=== PATIENT | female | born 2000 | race Caucasian/White ===

== ENCOUNTER 2020-07-28 23:24 | Emergency (ER) | payer OTHER ==
[~2020-07-28 23:24] MED LIST: BACTRIM DS TAB1 EACH PO; PYRIDIUM100 MG PO
[2020-07-29] MEDS ORDERED: VENTOLIN HFA IN18 GM INH (04:18)
== END 2020-07-29 04:44 | disposition home or self-care (01) ==
LOC: FER 23:24
DX: J45.901 Unspecified asthma with (acute) exacerbation (principal); Z88.1 Allergy status to other antibiotic agents; Z88.8 Allergy status to other drugs, medicaments and biological substances; Z20.822 Contact with and (suspected) exposure to COVID-19
CPT/HCPCS: 71045; U0002

== ENCOUNTER 2020-09-01 11:12 | Emergency (ER) | payer OTHER ==
[~2020-09-01 11:12] MED LIST changes: +VENTOLIN HFA IN18 GM INH
[2020-09-01 11:40] LABS: BILIRUBIN NEGATIVE (NEGATIVE); BLOOD NEGATIVE Ery/uL (NEGATIVE); CLARITY CLEAR (CLEAR); COLOR YELLOW (YELLOW); GLUCOSE (U) NORMAL (NORMAL); LEUKOCYTES NEGATIVE Leu/uL (NEGATIVE); NITRITE NEGATIVE (NEGATIVE); PROTEIN NEGATIVE (NEGATIVE); SPECIFIC GRAVITY 1.025 (1.001-1.030); UROBILINOGEN 0.2 mg/dL (0.2-1.0)
[2020-09-01 11:59] LABS: BASOPHIL 0.3 % (0-2); EOSINOPHIL 0.8 % (0-5); HCT 41.7 % (37.0-47.0); HGB 14.1 g/dl (12.5-16.0); LYMPHOCYTE 23.2 % (15-48); MCH 30.7 pg (25.0-31.0); MCHC 33.8 g/dL (32.0-36.0); MCV 90.8 fL (78.0-100.0); MPV 10.8 fL (6.0-9.5); NEUTROPHIL 69.1 % (41-80); NRBC 0; PLT 222 K/uL (150-400); RBC 4.59 M/uL (4.20-5.40); WBC 8.6 K/uL (4.0-10.5)
[2020-09-01 12:07] LABS: ALBUMIN 3.7 g/dL (3.4-5.0); BILIRUBIN - TOTAL 0.7 mg/dL (0.2-1.0); BUN/CREAT RATIO (CALC) 12.9 RATIO; CREATININE 0.62 mg/dL (0.51-0.95); GLOBULIN (CALCULATION) 3.7 g/dL; POTASSIUM 3.6 mmol/L (3.5-5.1); TOTAL PROTEIN 7.4 g/dL (6.4-8.2)
== END 2020-09-01 17:45 | disposition home or self-care (01) ==
LOC: FER 11:12
PROVIDERS: Emergency Medicine
DX: O99.891 Other specified diseases and conditions complicating pregnancy (principal); R10.9 Unspecified abdominal pain; R82.4 Acetonuria; O99.511 Diseases of the respiratory system complicating pregnancy, first trimester; J45.909 Unspecified asthma, uncomplicated; Z88.8 Allergy status to other drugs, medicaments and biological substances; Z88.1 Allergy status to other antibiotic agents; Z3A.01 Less than 8 weeks gestation of pregnancy
CPT/HCPCS: 36415; 76830; 80053; 81003; 84702; 85025; 86900; 86901

== ENCOUNTER 2021-01-19 07:48 | Emergency (ER) | payer OTHER ==
[~2021-01-19] VITALS: Ht 157.5 cm; Wt 61.2 kg
[2021-01-19 08:42] LABS: BASOPHIL 1.1 % (0-2); BILIRUBIN NEGATIVE (NEGATIVE); BLOOD NEGATIVE Ery/uL (NEGATIVE); CLARITY CLEAR (CLEAR); COLOR YELLOW (YELLOW); EOSINOPHIL 0.8 % (0-5); GLUCOSE (U) NORMAL (NORMAL); HGB 12.4 g/dl (12.5-16.0); LEUKOCYTES NEGATIVE Leu/uL (NEGATIVE); LYMPHOCYTE 4.9 % (15-48); MCH 31.1 pg (25.0-31.0); MCHC 32.6 g/dL (32.0-36.0); MCV 95.2 fL (78.0-100.0); MONOCYTE 7.6 % (0-12); MPV 10.2 fL (6.0-9.5); NEUTROPHIL 78.4 % (41-80); NITRITE NEGATIVE (NEGATIVE); NRBC 0; PLT 162 K/uL (150-400); PROTEIN NEGATIVE (NEGATIVE); RBC 3.99 M/uL (4.20-5.40); RDW 13.1 % (11.5-14.0); SPECIFIC GRAVITY 1.015 (1.001-1.030); UROBILINOGEN 0.2 mg/dL (0.2-1.0); WBC 8.4 K/uL (4.0-10.5)
[2021-01-19 09:32] LABS: ALBUMIN 2.6 g/dL (3.4-5.0); BILIRUBIN - TOTAL 0.2 mg/dL (0.2-1.0); BUN/CREAT RATIO (CALC) 13.6 RATIO; CREATININE 0.44 mg/dL (0.51-0.95); GLOBULIN (CALCULATION) 3.4 g/dL; POTASSIUM 3.6 mmol/L (3.5-5.1)
== END 2021-01-19 12:42 | disposition home or self-care (01) ==
LOC: FER 07:48
PROVIDERS: Emergency Medicine
DX: O98.512 Other viral diseases complicating pregnancy, second trimester (principal); U07.1 COVID-19; Z23 Encounter for immunization; Z88.8 Allergy status to other drugs, medicaments and biological substances; Z88.1 Allergy status to other antibiotic agents; Z3A.25 25 weeks gestation of pregnancy
CPT/HCPCS: 36415; 80053; 81003; 85025; 87088; J7030; M0243; Q0244; U0002

== ENCOUNTER 2021-02-20 23:33 | Emergency (ER) | payer OTHER ==
[2021-02-21 00:42] LABS: BASOPHIL 0.7 % (0-2); EOSINOPHIL 0.7 % (0-5); HCT 33.9 % (37.0-47.0); HGB 11.5 g/dl (12.5-16.0); LYMPHOCYTE 15.4 % (15-48); MCH 31.4 pg (25.0-31.0); MCHC 33.9 g/dL (32.0-36.0); MCV 92.6 fL (78.0-100.0); MONOCYTE 10.6 % (0-12); MPV 9.7 fL (6.0-9.5); NEUTROPHIL 65.1 % (41-80); NRBC 0; PLT 149 K/uL (150-400); RBC 3.66 M/uL (4.20-5.40); RDW 12.7 % (11.5-14.0); WBC 11.8 K/uL (4.0-10.5)
[2021-02-21 00:57] LABS: ALBUMIN 2.1 g/dL (3.4-5.0); BILIRUBIN - TOTAL 0.2 mg/dL (0.2-1.0); BUN/CREAT RATIO (CALC) 15.6 RATIO; CREATININE 0.45 mg/dL (0.51-0.95); GLOBULIN (CALCULATION) 3.6 g/dL; POTASSIUM 3.3 mmol/L (3.5-5.1); TOTAL PROTEIN 5.7 g/dL (6.4-8.2)
== END 2021-02-21 03:22 | disposition home or self-care (01) ==
LOC: FER 23:33
PROVIDERS: Internal Medicine
DX: O99.891 Other specified diseases and conditions complicating pregnancy (principal); N13.2 Hydronephrosis with renal and ureteral calculous obstruction; Z88.1 Allergy status to other antibiotic agents; Z88.8 Allergy status to other drugs, medicaments and biological substances; Z3A.29 29 weeks gestation of pregnancy
CPT/HCPCS: 36415; 76700; 80053; 83690; 85025